=== PATIENT | female | born 1930 | race Caucasian/White ===

== ENCOUNTER → 2016-08-09 | Outpatient (REF) ==
[~2016-08-09] MED LIST: NEXIUM 40MG40 MG PO; PROAIR HFA0.09 MG/AC IH
== END ==
LOC: ZLAB.WCH 14:40
DX: Z01.89 Encounter for other specified special examinations (principal)

== ENCOUNTER → 2017-12-15 | Outpatient (REF) | LOC: ZLAB.WCH 15:59 | DX: Z01.89 Encounter for other specified special examinations (principal) ==